=== PATIENT | female | born 1940 | race Two or more races ===

== ENCOUNTER 2024-12-21 17:28 | Inpatient (IN) | payer OTHER ==
[~2024-12-21] VITALS: Ht 167.6 cm; Wt 59.0 kg
[2024-12-21] MEDS ORDERED: SODIUM CHLORIDE 0.45 % 500 ML IV STA (18:19)
[2024-12-21] MEDS ORDERED: XARELTO20 M1 PO (18:24)
[2024-12-21] MEDS ORDERED: LIPITOR40 MG PO (18:25)
[2024-12-21] MEDS ORDERED: VALSARTAN40 MG PO (18:25)
[2024-12-21] MEDS ORDERED: NASAL MIST126 ML (18:25)
[2024-12-21] MEDS ORDERED: MELATONIN10 MG (18:25)
[2024-12-21 20:58] LABS: BASO % 0.2 % (0.1-1.2); LYMPH % 15.4 % (19.3-53.1); MEAN CORPUSCULAR HEMOGLOBIN 32.3 pg (25.6-32.2); MONO % 8.3 % (4.7-12.5); NEUT # 6.65 (1.56-6.13); NEUT % 75.9 % (34.0-71.1); PLATELET COUNT 129 K/uL (163-369); RED BLOOD COUNT 2.35 M/uL (3.93-5.22)
[2024-12-21 20:59] LABS: LYMPH # 1.35 (1.18-3.74); MONO # 0.73 (0.24-0.82)
[2024-12-21 21:01] LABS: HEMATOCRIT 24.5 % (34.1-44.9); HEMOGLOBIN 7.6 g/dL (11.2-15.7)
[2024-12-21 21:05] LABS: INR 1.1; PARTIAL THROMBOPLASTIN TIME 28.3 SECONDS (22.0-34.0); PROTHROMBIN TIME 11.9 SECONDS (9.0-11.5)
[2024-12-21 21:11] LABS: ALBUMIN 3.1 gm/dL (3.4-5.0); BILIRUBIN TOTAL 0.44 mg/dL (0.3-1.2); CALCIUM 8.4 mg/dL (8.5-10.1); CREATININE SERUM 0.9 mg/dL (0.55-1.02); GFR 59.37; GLOBULINA 3.3 G/DL (2.4-3.5); POTASSIUM 4.39 mEq/L (3.5-5.1); TOTAL PROTEIN 6.4 gm/dL (6.4-8.2)
[2024-12-21 22:05] LABS: PH,URINE 5.5 (5.0-8.0); URINE APPEARANCE Cloudy; URINE BILIRRUBIN Negative (NEGATIVE); URINE BLOOD Trace; URINE COLOR Yellow; URINE GLUCOSE Negative (NEGATIVE); URINE KETONE Trace (NEGATIVE); URINE LEUKOCYTE Moderate; URINE NITRATE Positive; URINE PROTEIN 30 (NEGATIVE)
[2024-12-21 22:09] LABS: URINE CAST 11.31 uL (0.0-1.40); URINE EPITHELIAL CELLS 40.2 uL (0.0-38.8); URINE RBC 592.3 uL (0.0-20.8); URINE WBC 151.9 uL (0.0-23.2)
[2024-12-21] MEDS ORDERED: PANTOPRAZOLE SODIUM 40 MG/VIAL VIAL IV SCH (22:09)
[2024-12-21] MEDS ORDERED: IRBESARTAN 75 MG TABLET PO SCH (22:09)
[2024-12-21] MEDS ORDERED: FUROsemide 20 MG/2 ML VIAL IV SCH (22:15)
[2024-12-21] MEDS ORDERED: MORPHINE SULFATE 2 MG/ML CARTRIDGE IV PRN (22:15)
[2024-12-21] MEDS ORDERED: ACETAMINOPHEN 500 MG GEL..CAP PO PRN (22:15)
[2024-12-21] MEDS ORDERED: 0.9 % SODIUM CHLORIDE 1,000 ML IV SCH (22:15)
[2024-12-21 22:29] LABS: URINE BACTERIA > 9821.5 uL (0.0-1933)
[2024-12-22 02:12] VITALS: BP 130/80; BP 131/57; O2SAT 96
[2024-12-22 05:10] VITALS: BP 100/52
[2024-12-22 08:22] VITALS: BP 86/59
[2024-12-22] MEDS ORDERED: ATORVASTATIN CALCIUM 40 MG TABLET PO SCH (09:00)
[2024-12-22] MEDS ORDERED: AMINO ACIDS 1 EACH TABLET PO SCH (09:00)
[2024-12-22] MEDS ORDERED: CEFTRIAXONE SODIUM 1,000 MG in 0.9 % SODIUM CHLORIDE 100 ML IV NR (10:00)
[2024-12-22 16:00] VITALS: BP 83/54; O2SAT 95
[2024-12-22 17:04] VITALS: O2SAT 98
[2024-12-22 19:37] VITALS: O2SAT 97
[2024-12-22] MEDS ORDERED: CEFTRIAXONE SODIUM 1,000 MG in 0.9 % SODIUM CHLORIDE 100 ML IV SCH (21:00)
[2024-12-22 23:58] LABS: FERRITIN 206.9 NG/ML (8-252)
[2024-12-23] VITALS (7 sets, daily range): BP systolic 118–134; BP diastolic 65–90; O2SAT 90–99
[2024-12-23 14:09] LABS: FOLIC ACID 15.93 ng/ml (4.78-20)
[2024-12-23 15:37] LABS: ALBUMIN 2.7 gm/dL (3.4-5.0); BILIRUBIN TOTAL 0.79 mg/dL (0.3-1.2); CALCIUM 7.9 mg/dL (8.5-10.1); CREATININE SERUM 1.03 mg/dL (0.55-1.02); GFR 50.81; GLOBULINA 3.4 G/DL (2.4-3.5); MAGNESIUM 1.6 mg/dL (1.8-2.4); PHOSPHOROUS 3.1 mg/dL (2.5-4.9); POTASSIUM 3.42 mEq/L (3.5-5.1); TOTAL PROTEIN 6.1 gm/dL (6.4-8.2)
[2024-12-23 15:46] LABS: C-REACTIVE PROTEIN 8.59 MG/DL (0.00-0.29)
[2024-12-23 15:52] LABS: COL EPI 123 SECONDS (82-175)
[2024-12-23 21:59] LABS: BASO % 0.2 % (0.1-1.2); EOS # 0.03 (0.04-0.54); EOS % 0.3 % (0.7-7.0); HEMATOCRIT 27.5 % (34.1-44.9); LYMPH % 12.5 % (19.3-53.1); MEAN CORPUSCULAR HEMOGLOBIN 30.7 pg (25.6-32.2); MONO # 0.55 (0.24-0.82); MONO % 6.3 % (4.7-12.5); NEUT # 7.08 (1.56-6.13); NEUT % 80.6 % (34.0-71.1); PLATELET COUNT 182 K/uL (163-369); RED CELL DISTRIBUTION WIDTH 15.7 % (11.6-14.4)
[2024-12-23 22:05] LABS: HEMOGLOBIN 9.2 g/dL (11.2-15.7)
[2024-12-24] VITALS: O2SAT 86
[2024-12-24 00:41] VITALS: BP 118/77
[2024-12-24 08:00] VITALS: BP 119/42; O2SAT 98
[2024-12-24] MEDS ORDERED: PHYTONADIONE PO STA (10:53)
[2024-12-24 11:29] LABS: EOS # 0.03 (0.04-0.54); EOS % 0.4 % (0.7-7.0); LYMPH # 1.08 (1.18-3.74); LYMPH % 13.5 % (19.3-53.1); MEAN CORPUSCULAR HEMOGLOBIN 31.1 pg (25.6-32.2); MONO # 0.52 (0.24-0.82); MONO % 6.5 % (4.7-12.5); NEUT # 6.35 (1.56-6.13); NEUT % 79.2 % (34.0-71.1); PLATELET COUNT 184 K/uL (163-369); RED BLOOD COUNT 2.67 M/uL (3.93-5.22); RED CELL DISTRIBUTION WIDTH 15.6 % (11.6-14.4)
[2024-12-24 11:40] LABS: HEMATOCRIT 25.1 % (34.1-44.9); HEMOGLOBIN 8.3 g/dL (11.2-15.7)
[2024-12-24] MEDS ORDERED: CEFTRIAXONE SODIUM 1,000 MG VIAL ONE (16:41)
[2024-12-24] MEDS ORDERED: PHYTONADIONE PO NR (17:00)
[2024-12-24 17:01] VITALS: O2SAT 95
[2024-12-24 20:23] VITALS: O2SAT 97
[2024-12-25] VITALS (9 sets, daily range): BP systolic 114–148; BP diastolic 70–98; O2SAT 94–96
[2024-12-25 05:35] LABS: BASO % 0.2 % (0.1-1.2); EOS # 0.09 (0.04-0.54); EOS % 1.1 % (0.7-7.0); HEMATOCRIT 30.2 % (34.1-44.9); HEMOGLOBIN 9.9 g/dL (11.2-15.7); LYMPH # 1.13 (1.18-3.74); LYMPH % 13.7 % (19.3-53.1); MEAN CORPUSCULAR HEMOGLOBIN 29.8 pg (25.6-32.2); MONO # 0.61 (0.24-0.82); MONO % 7.4 % (4.7-12.5); NEUT # 6.39 (1.56-6.13); NEUT % 77.2 % (34.0-71.1); PLATELET COUNT 211 K/uL (163-369); RED BLOOD COUNT 3.32 M/uL (3.93-5.22); RED CELL DISTRIBUTION WIDTH 16.7 % (11.6-14.4)
[2024-12-25 06:22] LABS: INR 1.07; PROTHROMBIN TIME 11.6 SECONDS (9.0-11.5)
[2024-12-25 20:48] LABS: BASO % 0.3 % (0.1-1.2); EOS # 0.08 (0.04-0.54); EOS % 0.9 % (0.7-7.0); HEMATOCRIT 31.2 % (34.1-44.9); HEMOGLOBIN 10.3 g/dL (11.2-15.7); LYMPH # 0.99 (1.18-3.74); LYMPH % 11.4 % (19.3-53.1); MEAN CORPUSCULAR HEMOGLOBIN 29.9 pg (25.6-32.2); MONO # 0.74 (0.24-0.82); MONO % 8.5 % (4.7-12.5); NEUT % 78.7 % (34.0-71.1); PLATELET COUNT 198 K/uL (163-369); RED BLOOD COUNT 3.45 M/uL (3.93-5.22); RED CELL DISTRIBUTION WIDTH 16.3 % (11.6-14.4)
[2024-12-26 00:18] VITALS: O2SAT 96
[2024-12-26 02:52] VITALS: BP 142/71; O2SAT 93
[2024-12-26 03:46] VITALS: O2SAT 95
[2024-12-26 08:03] LABS: ALBUMIN 2.3 gm/dL (3.4-5.0); BILIRUBIN TOTAL 0.87 mg/dL (0.3-1.2); CALCIUM 7.8 mg/dL (8.5-10.1); CREATININE SERUM 0.73 mg/dL (0.55-1.02); GFR 75.59; GLOBULINA 3.3 G/DL (2.4-3.5); POTASSIUM 4.18 mEq/L (3.5-5.1); TOTAL PROTEIN 5.6 gm/dL (6.4-8.2)
[2024-12-26 08:32] LABS: BASO % 0.1 % (0.1-1.2); EOS # 0.12 (0.04-0.54); EOS % 1.3 % (0.7-7.0); HEMATOCRIT 34.4 % (34.1-44.9); LYMPH # 1.27 (1.18-3.74); LYMPH % 14.2 % (19.3-53.1); MEAN CORPUSCULAR HEMOGLOBIN 29.8 pg (25.6-32.2); MONO # 0.69 (0.24-0.82); MONO % 7.7 % (4.7-12.5); NEUT # 6.81 (1.56-6.13); NEUT % 76.3 % (34.0-71.1); PLATELET COUNT 225 K/uL (163-369); RED BLOOD COUNT 3.69 M/uL (3.93-5.22); RED CELL DISTRIBUTION WIDTH 16.4 % (11.6-14.4)
[2024-12-26 08:48] VITALS: BP 109/66
[2024-12-26] MEDS ORDERED: PANTOPRAZOLE SODIUM 40 MG TABLET.DR PO SCH (09:00)
[2024-12-26 09:34] VITALS: O2SAT 95
[2024-12-26] MEDS ORDERED: ONDANSETRON HCL 2 MG/ML VIAL IV PRN (17:45)
[2024-12-26] MEDS ORDERED: 0.9 % SODIUM CHLORIDE 1,000 ML IV SCH (17:45)
[2024-12-26] MEDS ORDERED: MORPHINE SULFATE 4 MG/ML VIAL IV ONE (19:20)
[2024-12-26 21:15] VITALS: O2SAT 97
[2024-12-27] VITALS (9 sets, daily range): BP systolic 119–151; BP diastolic 67–85; O2SAT 94–97
[2024-12-27 08:23] LABS: CREATININE SERUM 0.59 mg/dL (0.55-1.02); GFR 96.64; POTASSIUM 4.24 mEq/L (3.5-5.1)
[2024-12-27 08:41] LABS: BASO % 0.3 % (0.1-1.2); EOS # 0.09 (0.04-0.54); EOS % 0.9 % (0.7-7.0); HEMATOCRIT 31.9 % (34.1-44.9); HEMOGLOBIN 10.3 g/dL (11.2-15.7); LYMPH # 0.56 (1.18-3.74); LYMPH % 5.8 % (19.3-53.1); MEAN CORPUSCULAR HEMOGLOBIN 30.4 pg (25.6-32.2); MONO # 0.56 (0.24-0.82); MONO % 5.8 % (4.7-12.5); NEUT # 8.45 (1.56-6.13); NEUT % 86.8 % (34.0-71.1); PLATELET COUNT 251 K/uL (163-369); RED BLOOD COUNT 3.39 M/uL (3.93-5.22); RED CELL DISTRIBUTION WIDTH 15.7 % (11.6-14.4)
[2024-12-27] MEDS ORDERED: TRAMADOL HCL 50 MG TABLET PO PRN (14:00)
[2024-12-28] VITALS (9 sets, daily range): BP systolic 114–157; BP diastolic 60–72; O2SAT 94–98
[2024-12-28 15:16] LABS: BASO % 0.2 % (0.1-1.2); EOS # 0.22 (0.04-0.54); EOS % 2.4 % (0.7-7.0); HEMATOCRIT 29.6 % (34.1-44.9); HEMOGLOBIN 9.6 g/dL (11.2-15.7); LYMPH # 0.99 (1.18-3.74); LYMPH % 10.8 % (19.3-53.1); MEAN CORPUSCULAR HEMOGLOBIN 30.6 pg (25.6-32.2); MONO # 0.48 (0.24-0.82); MONO % 5.2 % (4.7-12.5); NEUT # 7.44 (1.56-6.13); PLATELET COUNT 280 K/uL (163-369); RED BLOOD COUNT 3.14 M/uL (3.93-5.22); RED CELL DISTRIBUTION WIDTH 15.2 % (11.6-14.4)
[2024-12-28 15:37] LABS: CALCIUM 7.6 mg/dL (8.5-10.1); CREATININE SERUM 0.76 mg/dL (0.55-1.02); GFR 72.16; POTASSIUM 3.89 mEq/L (3.5-5.1)
[2024-12-29] VITALS: BP 135/66; O2SAT 97; O2SAT 98
[2024-12-29 09:08] VITALS: BP 149/78; O2SAT 97
[2024-12-29 16:00] VITALS: BP 107/63; O2SAT 93
== END 2024-12-29 17:21 | disposition home or self-care (01) | DRG 908 ==
LOC: ER 17:28 → EDBD 18:03 → ER 18:03 → MEDI 22:25
PROVIDERS: Emergency Medicine; General Practice; Internal Medicine; Internal Medicine Hematology & Oncology; Internal Medicine Infectious Disease; Surgery; ADMIT Student in an Organized Health Care Education/Training Program; ATTEND Student in an Organized Health Care Education/Training Program
PROC: BQ2RZZZ Computerized Tomography (CT Scan) of Right Lower Extremity (ICD-10-PCS; 2024-12-21)
PROC: 4A12X4Z Monitoring of Cardiac Electrical Activity, External Approach (ICD-10-PCS; 2024-12-22)
PROC: 30233N1 Transfusion of Nonautologous Red Blood Cells into Peripheral Vein, Percutaneous Approach (ICD-10-PCS; 2024-12-22)
PROC: 0Y6H0Z3 Detachment at Right Lower Leg, Low, Open Approach (ICD-10-PCS; principal; 2024-12-26 11:30)
DX: S78.111A Complete traumatic amputation at level between right hip and knee, initial encounter (principal); M80.051A Age-related osteoporosis with current pathological fracture, right femur, initial encounter for fracture; N39.0 Urinary tract infection, site not specified; M97.11XA Periprosthetic fracture around internal prosthetic right knee joint, initial encounter; D64.89 Other specified anemias; I70.291 Other atherosclerosis of native arteries of extremities, right leg; D69.6 Thrombocytopenia, unspecified; M24.69 Ankylosis, other specified joint; E78.5 Hyperlipidemia, unspecified; G30.8 Other Alzheimer's disease; F02.C0 Dementia in other diseases classified elsewhere, severe, without behavioral disturbance, psychotic disturbance, mood disturbance, and anxiety; W18.39XA Other fall on same level, initial encounter; Y92.121 Bathroom in nursing home as the place of occurrence of the external cause; M24.562 Contracture, left knee; I73.89 Other specified peripheral vascular diseases; Z74.09 Other reduced mobility; Z79.01 Long term (current) use of anticoagulants